=== PATIENT | male | born 1975 | race Caucasian/White ===

== ENCOUNTER 2023-09-02 08:50 | Emergency (ER) | payer MEDICAID, SELFPAY ==
[2023-09-02 08:51] VITALS: BP 147/71; PULSE 105; RESP 18; TEMP 36.3; O2SAT 99; BMI 29.1
--- NOTE | 2023-09-02 10:08 | ED.VIS.DENTA ---
HPI History of Present Illness Chief Complaint: Dental Informant: patient Narrative Narrative: 47-year-old male presenting to the emergency room with facial swelling and dental pain. Patient states that 2 weeks ago he was seen at [facility] and was given clindamycin for dental infection. He states that he felt like it got a little bit better but now he is having facial swelling and a bump on his gumline on the left upper side. He states he is in recovery and does not wish pain medication. He denies any fevers. No drainage from the bump. [facility] Medical History (Updated 09/02/23 @ 12:[address] Ishan Blas DO) Substance abuse Home Medications ?Medication ?Instructions ?Recorded ?Last Taken ?Type cyclobenzaprine 10 mg tablet 10 mg PO TID ##10 05/11/13 Unknown Rx hydrocodone-acetaminophen 5-325mg 1 tab PO Q6H PRN PRN Pain ##10 05/11/13 Unknown Rx 5mg-325mg prednisone 50 mg tablet 50 mg PO DAILY #5 tabs 05/11/13 Unknown Rx hydrocodone-acetaminophen 5-325mg 1 - 2 tab PO Q4H PRN PRN Pain ##10 04/23/14 Unknown Rx 5mg-325mg naproxen 500 mg tablet 500 mg PO BID #20 tabs 04/23/14 Unknown Rx penicillin V potassium 500 mg 500 mg PO 4X/DAY #40 tabs 04/23/14 Unknown Rx tablet amoxicillin 875 mg-potassium 875 mg PO Q12H #19 TABLETS 09/02/23 Unknown Rx clavulanate 125 mg tablet ibuprofen 600 mg tablet 600 mg PO Q6H PRN PRN pain #20 09/02/23 Unknown Rx TABLETS Allergy/AdvReac Type Severity Reaction Status Date / Time No Known Allergies Allergy Verified 09/02/23 08:52 Social History Smoking Status: Current every day smoker tobacco type: cigarettes ROS ROS ED Constitutional Constitutional ED: Denies chills or weight loss Eyes Eyes: Denies change in vision or diplopia ENT ENT ED: Reports other Details: Left facial pain and swelling dental abscess ; Denies ear pain, rhinorrhea or sore throat Cardiovascular Cardiovascular: Denies chest pain, orthopnea, palpitations or racing heartbeat Respiratory/Chest Respiratory/Chest: Denies cough, dyspnea or orthopnea Gastrointestinal Gastrointestinal: Denies abdominal pain, diarrhea, nausea or vomiting Genitourinary Genitourinary ED: Denies dysuria, hematuria or urinary frequency Musculoskeletal Musculoskeletal: Denies arthralgias or myalgias Integumentary Denies abscess or rash Neurologic Neurologic: Denies headache(s) or weakness Psychiatric Psychiatric: Denies anxiety, depression, suicidal ideation or suicidal thoughts Endocrine Endocrinology: Denies polydipsia, polyphagia or polyuria Allergic/Immunologic Allergic/Immunologic ED: Denies mouth swelling, tongue swelling or urticaria EXAM Physical Exam Const Vital Signs: 09/02/23 08:51 09/02/23 10:13 Temperature 97.3 F L 97.5 F L Temperature Source Temporal Pulse Rate 105 H 72 Respiratory Rate 18 16 Blood Pressure 147/71 H 137/63 H Blood Pressure Mean 96 87 Pulse Ox 99 98 Oxygen Delivery Method Room Air Positive well nourished and well developed General Appearance ED: well developed HEENT Reports normocephalic, head/scalp atraumatic and moist mucous membranes HEENT Narrative: Patient has facial swelling on the left maxillary sinus region with no overlying erythema. There is no trismus. There is a very large focal abscess on the gumline left upper in the region of the premolars. When I left up the cheek it spontaneously starts to drain a large amount of pus and blood. Floor the mouth is soft. There is no tongue swelling. There is no palatal swelling. Airway is patent. Eyes PERRL and EOMs intact bilaterally Neck no lymphadenopathy, supple and no JVD Resp normal respiratory effort and clear to auscultation bilaterally Cardio regular rate, regular rhythm and no murmurs GI normal to inspection, nondistended, normoactive bowel sounds and non-tender Palpation: soft Back/Spine no CVA tenderness and normal ROM Extremity normal to inspection General Extremety ED: Negative for edema General Extremity: Negative for edema Neuro oriented x3 and CN's II-XII intact bilaterally Sensorium / Orientation: alert Motor Exam: strength 5/5 throughout Psych mental status grossly normal Mood & Affect: Negative for depressed or tearful Skin no rashes or lesions noted and no wounds MDM MDM MDM Narrative Medical decision making narrative: Differential diagnosis includes ANUG, dental abscess, dental caries, facial cellulitis, Cameron's angina. The abscess is spontaneously draining and has a large hole in it currently. He is able to massage it and continue to express its contents. I will be placing him on Augmentin and ibuprofen. I urged him to follow-up with dentistry for definitive care. History & Record Review Discussion w/independent historian: Patient Discharge Plan Triage Chief Complaint: Dental ED Provider: Ishan Blas Dx/Rx/DC Orders Clinical Impression: Abscess, dental, Pain, dental, Facial swelling Instructions: ED Dental Abscess Prescriptions: New ibuprofen 600 mg tablet 600 mg PO Q6H PRN PRN (Reason: pain) Qty: 20 0RF amoxicillin-pot clavulanate 875-125 mg tablet 875 mg PO Q12H Qty: 19 0RF No Action cyclobenzaprine 10 MG tablet 10 mg PO TID Qty: 10 0RF hydrocodone-acetaminophen 1 TABLET tablet 1 tab PO Q6H PRN PRN (Reason: Pain) Qty: 10 0RF prednisone 50 MG tablet 50 mg PO DAILY Qty: 5 0RF hydrocodone-acetaminophen 1 TABLET tablet 1 - 2 tab PO Q4H PRN PRN (Reason: Pain) Qty: 10 0RF naproxen 500 MG tablet 500 mg PO BID Qty: 20 0RF penicillin V potassium 500 MG tablet 500 mg PO 4X/DAY Qty: 40 0RF Primary Care Provider: Dago Pedraza Chi Referrals: Dago Pedraza Chi, MD [Primary Care Provider] - Activity Restrictions/Additional Instructions: Please follow-up with dentistry as soon as possible. This is to provide definitive care for the tooth and to prevent reoccurrence Print Language: [place] Disposition Disposition: Home, Self Care Discharge Date/Time: 09/02/23 10:14
[2023-09-02] MEDS: Amox/Clavulanate 875 MG Tablet PO (10:11)
[2023-09-02 10:13] VITALS: BP 137/63; PULSE 72; RESP 16; TEMP 36.4; O2SAT 98
== END 2023-09-02 10:14 | disposition home or self-care (01) ==
PROVIDERS: Emergency Provider Emergency Medicine; PCP Family Medicine Geriatric Medicine; Visit Provider Emergency Medicine
DX: K04.7 Periapical abscess without sinus (principal); R22.0 Localized swelling, mass and lump, head; K08.89 Other specified disorders of teeth and supporting structures; F17.210 Nicotine dependence, cigarettes, uncomplicated
CPT/HCPCS: 99282